=== PATIENT | male | born 1980 | race Caucasian/White ===

== ENCOUNTER 2020-05-15 21:06 | Emergency (ER) | payer BC, SELFPAY ==
--- NOTE | ~2020-05-15 | XR_ITS ---
EXAMINATION: XR chest 2V EXAM DATE: 05/15/2020 21:35 INDICATION: Left-sided chest pain, shortness of breath and palpitations. Symptoms 2 hours. TECHNIQUE: Frontal and lateral projections of the chest obtained and reviewed. There is no prior erick dy for comparison. FINDINGS: The lungs are clear. There are no pleural effusions. The cardiomediastinal silhouette is within normal limits. There is no pneumothorax suspected. The bones and soft tissues are unremarkab le. IMPRESSION: Unremarkable chest x-ray exam. Reviewed, dictated and finalized at location G. [employer]
[2020-05-15 21:08] VITALS: BP 157/104; PULSE 90; RESP 18; TEMP 36.7; O2SAT 96
--- NOTE | 2020-05-15 21:13 | ECG_ITS ---
Measurements Intervals [place] Rate: 90 P: 35 WV: 161 QRS: 48 QRSD: 94 T: 36 QT: 347 QTc: 425 Interpretive Statements SINUS RHYTHM RSR' IN V1 OR V2, CONSIDER RIGHT VENTRICULAR HYPERTROPHY OR RIGHT VCD BASELINE WANDER- I, II, III, V4-V6 BORDERLINE ECG Electronically Signed On 05-16-2020 7:08:44 [employer] by Cecilio Galeano D.O.
[2020-05-15 21:24] LABS: Basophils Absolute Auto 0.1 K/mm3 (0.0-0.1); Basophils Percent Auto 0.9 % (0.2-1.2); Eosinophils Absolute Auto 0.4 K/mm3 (0-0.3); Eosinophils Percent Auto 2.7 % (0-4.4); Hematocrit 41.8 % (42.0-52.0); Hemoglobin 14.6 g/dL (14.0-18.0); Immature Granulocyte Absolute 0.04 K/mm3 (0.00-0.031); Immature Granulocyte Percent A 0.3 % (0-0.5); Lymphocytes Absolute Auto 4.26 K/mm3 (0.9-3.2); Lymphocytes Percent Auto 30.6 % (18.3-44.2); Mean Corpuscular HGB Conc 34.9 g/dl (32-36); Mean Corpuscular Hemoglobin 29.4 pg (26-34); Mean Corpuscular Volume 84.3 fl (80-100); Mean Platelet Volume 10.1 fl (7.4-10.4); Monocytes Absolute Auto 1.3 K/mm3 (0.1-0.6); Monocytes Percent Auto 9.1 % (2.6-8.5); Neutrophils Absolute Auto 7.8 K/mm3 (1.3-6.7); Neutrophils Percent Auto 56.4 % (45.5-73.1); Platelet Count Result 348 k/mm3 (150-375); Red Blood Count 4.96 M/mm3 (4.6-6.20); Red Cell Distribution Width 13.3 % (11.5-14.5); White Blood Count 13.9 K/mm3 (4.5-10.0)
[2020-05-15] MEDS: ASPIRIN 81 MG CHEWABLE TABLET 324 MG PO (21:32)
[2020-05-15 21:33] LABS: Prothrombin Time 13.5 Seconds (11.1-14.7)
[2020-05-15 21:34] LABS: Partial Thromboplastin Time 31.4 SECONDS (22.3-36.8)
[2020-05-15 21:36] LABS: Anion Gap 9 mmol/L (8-16); Blood Urea Nitrogen 18 mg/dL (9-20); Calcium 9.8 mg/dL (8.4-10.2); Carbon Dioxide 28 mmol/L (22-30); Chloride 103 mmol/L (98-107); Estimated CRCL calculation 129 ml/min; Estimated Glomerular Filt Rate > 60; Glucose 119 mg/dL (75-110); Potassium 3.8 mmol/L (3.4-5.0); Sodium 140 mmol/L (137-145)
[2020-05-15 21:48] LABS: Troponin I < 0.012 ng/mL (0.000-0.034)
[2020-05-15 22:05] VITALS: BP 123/78; PULSE 92; RESP 18; O2SAT 99
--- NOTE | 2020-05-15 22:19 | ED.CHESTPAIN ---
HPI - Chest Pain General Chief Complaint: Chest Pain Stated Complaint: high heart rate Time Seen by Provider: 05/15/20 21:08 History of Present Illness HPI narrative: Patient is a 40-year-old who presents to the ER with racing of his heart. Patient reports that prior to arrival he felt his heart racing. He used his 's apple watch to detect his heart rate and said it was over 200 bpm. He was feeling lightheaded and sweaty as well as short of breath. He had a brief episode of chest pain that was sharp on left side but nonradiating and did not persist. The tachycardia persisted so he came to the ER. While being placed on monitor it did show heart rate over 200 bpm but then he converted to a normal sinus rhythm. Patient began to feel much better. Patient does not go to a primary care doctor. He has family history of heart disease in his father and his grandfather. Related Data Allergies Allergy/AdvReac Type Severity Reaction Status Date / Time No Known Allergies Allergy Verified 05/15/20 21:14 Review of Systems Review of Systems: All systems reviewed & are unremarkable except as noted in HPI and below Constitutional: Constitutional: Denies chills, Denies fever(s) and Denies weakness Cardiovascular: Cardiovascular: Reports chest pain, Reports rapid heart rate and Denies radiating jaw, neck or arm pain Respiratory: Respiratory: Denies cough, Reports dyspnea and Denies wheezing Gastrointestinal: Gastrointestinal: Denies abdominal pain, Denies diarrhea, Denies nausea and Denies vomiting Neurologic: Denies syncope PMFSH Past Medical History Medical History (Updated 05/15/20 @ 22:37 by Danial Leon MD) Healthy adult male Obstructive sleep apnea Surgical History Surgical History (Updated 05/15/20 @ 22:21 by Danial Leon MD) No history of previous surgery Social History Social History (Updated 05/15/20 @ 22:23 by Danial Leon MD) Smoking status: Never smoker Exam Narrative: Exam Narrative: GENERAL: Well-appearing, well-nourished, and in no acute distress. HEAD: Normocephalic, atraumatic. ENT: Mucous membranes moist. CHEST: Clear to auscultation. No respiratory distress. HEART: Regular rate and rhythm. Normal peripheral pulses. EXTREMITIES: Normal range of motion. No edema. SKIN: Warm, dry, no rash. NEURO: Alert and oriented x3. PSYCH: Normal mood and affect. Course Course Emergency Course: Discussed with Dr. Tinajero. F/u in clinic tomorrow. Start Toprol XL 25mg daily. Will give Metoprolol Tartrate 25 x 1 tonight. Discussed return precautions and importance of f/u and pt verbalized understanding. Vital Signs Vital signs: Vital Signs Temperature 98.0 F 05/15/20 21:08 Pulse Rate 90 05/15/20 21:08 Respiratory Rate 18 05/15/20 21:08 Blood Pressure 157/104 H 05/15/20 21:08 Pulse Oximetry 96 05/15/20 21:08 Temperature 98.0 F 05/15/20 21:08 Pulse Rate 72 05/15/20 22:31 Respiratory Rate 18 05/15/20 22:05 Blood Pressure 123/78 05/15/20 22:05 Pulse Oximetry 99 05/15/20 22:05 MDM - Chest Pain Lab Data Result diagrams: 05/15/20 21:18 05/15/20 21:18 Labs: Lab Results 05/15/20 05/15/20 05/15/20 Range/Units 21:15 21:18 21:18 WBC 13.9 H (4.5-10.0) K/mm3 RBC 4.96 (4.6-6.20) M/mm3 Hgb 14.6 (14.0-18.0) g/dL Hct 41.8 L (42.0-52.0) % MCV 84.3 (80-100) fl MCH 29.4 (26-34) pg MCHC 34.9 (32-36) g/dl RDW 13.3 (11.5-14.5) % Plt Count 348 (150-375) k/mm3 MPV 10.1 (7.4-10.4) fl Immature Gran % (Auto) 0.3 (0-0.5) % Neut % (Auto) 56.4 (45.5-73.1) % Lymph % (Auto) 30.6 (18.3-44.2) % [place] % (Auto) 9.1 H (2.6-8.5) % Eos % (Auto) 2.7 (0-4.4) % Baso % (Auto) 0.9 (0.2-1.2) % Lymph # (Auto) 4.26 H (0.9-3.2) K/mm3 [place] # (Auto) 1.3 H (0.1-0.6) K/mm3 Eos # (Auto) 0.4 H (0-0.3) K/mm3 Baso # (Auto) 0.1 (0.0-0.1) K/mm3 Abs Immat Gra
[2020-05-15 22:31] VITALS: PULSE 72
[2020-05-15] MEDS: METOPROLOL TARTRATE 25 MG TABLET PO (22:31)
[2020-05-15 22:45] VITALS: BP 122/76; PULSE 76; RESP 18; O2SAT 99
== END 2020-05-15 22:47 | disposition home or self-care (01) ==
PROVIDERS: Emergency Provider Emergency Medicine
DX: I47.1 Supraventricular tachycardia (principal); G47.33 Obstructive sleep apnea (adult) (pediatric); R94.31 Abnormal electrocardiogram [ECG] [EKG]
CPT/HCPCS: 36415; 71046; 80048; 84484; 85025; 85610; 85730; 93005; 99284; A9270